=== PATIENT | female | born 1980 | race Two or more races ===

== ENCOUNTER → 2024-06-20 | Outpatient (CLI) | payer MEDICAID, SELFPAY ==
--- NOTE | 2024-06-20 15:02 | XR_ITS ---
EXAMINATION: Ankle, left 3 views . Technique: Ankle AP, oblique, lateral 3 views Date and time of exam: June 20, 2024 1500 hours INDICATIONS: Twisting injury to the ankle today, ankle pain. FINDINGS: Suspicious for tiny chip fracture off the fibular tip No ankle dislocation IMPRESSION: Suspicious for tiny avulsion fracture off the fibular tip
== END | disposition home or self-care (01) ==
PROVIDERS: PCP Physician Assistant; Referring Provider Physician Assistant; Visit Provider Physician Assistant
DX: S99.912A Unspecified injury of left ankle, initial encounter (principal); X50.1XXA Overexertion from prolonged static or awkward postures, initial encounter
CPT/HCPCS: 73610